=== PATIENT | female | born 1930 | race Two or more races ===

== ENCOUNTER 2019-09-29 12:38 | Inpatient (IN) | payer MEDICARE, MEDICAID ==
[~2019-09-29] VITALS: Ht 152.4 cm; Wt 84.4 kg
[2019-09-29] MEDS ORDERED: ACYCLOVIR INJ 500 MG in DEXT 5% WATER 100 ML IV STA (13:15)
[2019-09-29 13:45] LABS: BASOPHILS % 0.8 % (0.0-2.0); EOSINOPHILS % 1.8 % (0.0-5.0); HEMATOCRIT. 42.3 % (36.0-48.0); LYMPHOCYTES % 23.8 % (20.0-50.0); MEAN CORPUSCULAR HEMOGLOBIN 28.8 pg (28.0-32.0); MEAN CORPUSCULAR VOLUME 87.3 fL (81.0-99.0); MEAN PLATELET VOLUME 9.1 fl (7.4-10.4); MONOCYTES % 6.4 % (2.0-8.0); NEUTROPHILS % 67.2 % (40.0-76.0); PLATELET 243 x1000/uL (130-400); PROTHROMBIN TIME 10.1 sec (9.6-11.0); RED BLOOD CELL COUNT 4.85 mill/uL (4.2-5.4); RED CELL DISTRIBUTION WIDTH 14.3 % (11.6-14.6)
[2019-09-29 13:46] LABS: CHLORIDE 106 mEq/L (98-107)
[2019-09-29 13:53] LABS: ETHANOL BLOOD < 10 mg/dL
[2019-09-29 13:55] LABS: LDL CHOLESTEROL 43 mg/dL (5-100)
[2019-09-29] MEDS ORDERED: METHYLPREDNISOLONE SOD SUCC 125 MG/2 ML VIAL IV NR (15:00)
[2019-09-29] MEDS ORDERED: ASPIRIN 81MG TABLET PO ONE (17:00)
[2019-09-29] MEDS: SODIUM CHLORIDE 0.45% 1,000 ML IV SCH (17:29)
[2019-09-29] MEDS ORDERED: DOCUSATE SODIUM 100MG CAPSULE PO PRN (17:30)
[2019-09-29] MEDS ORDERED: NA PHOS,M-B/NA PHOS,DI-BA ENEMA 118ML PR PRN (17:30)
[2019-09-29] MEDS ORDERED: HYDROCODONE/ACETAMINOPHEN 5/325MG TABLET PO PRN (17:30)
[2019-09-29] MEDS ORDERED: ENOXAPARIN 40MG/0.4ML SYR SUBCUT SCH (17:30)
[2019-09-29] MEDS ORDERED: IPRATROPIUM/ALBUTEROL 0.5-3(2.5)MG/3ML NEB HHN PRN (17:30)
[2019-09-29] MEDS ORDERED: MORPHINE SULFATE 2 MG/ML CPJ (NOT FOR IM USE) IV PRN (17:30)
[2019-09-29] MEDS ORDERED: LORAZEPAM 2MG/ML CPJ IV PRN (17:30)
[2019-09-29] MEDS ORDERED: GUAIFENESIN 200MG/10ML SUGAR FREE UDC PO PRN (17:30)
[2019-09-29] MEDS ORDERED: MAGNESIUM/ALUMINUM HYDROXIDE/SIMETHICONE 30ML UDC PO PRN (17:30)
[2019-09-29] MEDS ORDERED: ONDANSETRON HCL 4MG/2ML INJ IV PRN (17:30)
[2019-09-29 21:10] VITALS: BP 146/67
[2019-09-29 21:15] VITALS: BP 146/67
[2019-09-29 22:00] LABS: CHLORIDE 106 mEq/L (98-107)
[2019-09-30] VITALS: BP 137/64
[2019-09-30] MEDS: ENOXAPARIN 40MG/0.4ML SYR SUBCUT SCH ×2 (00:53→21:52)
[2019-09-30 04:00] VITALS: BP 109/60
[2019-09-30 06:37] LABS: CHLORIDE 106 mEq/L (98-107)
[2019-09-30 06:39] LABS: BASOPHILS % 0.2 % (0.0-2.0); HEMATOCRIT. 40.4 % (36.0-48.0); HEMOGLOBIN. 13.6 g/dL (12.0-16.0); LYMPHOCYTES % 10.9 % (20.0-50.0); MEAN CORPUSCULAR HEMOGLOBIN 29.1 pg (28.0-32.0); MEAN CORPUSCULAR VOLUME 86.6 fL (81.0-99.0); MONOCYTES % 0.6 % (2.0-8.0); NEUTROPHILS % 88.3 % (40.0-76.0); PLATELET 262 x1000/uL (130-400); RED BLOOD CELL COUNT 4.66 mill/uL (4.2-5.4); RED CELL DISTRIBUTION WIDTH 13.8 % (11.6-14.6)
[2019-09-30 06:51] LABS: T4 FREE 0.66 ng/dL (0.76-1.46)
[2019-09-30 06:52] LABS: LDL CHOLESTEROL 50 mg/dL (5-100)
[2019-09-30 06:55] LABS: HDL CHOLESTEROL 66 mg/dL (40-59)
[2019-09-30 08:00] VITALS: BP 134/68
[2019-09-30] MEDS: SODIUM CHLORIDE 0.45% 1,000 ML IV SCH (09:15)
[2019-09-30] MEDS: ASPIRIN 81MG EC TABLET PO SCH (09:15)
[2019-09-30 11:48] LABS: CLARITY URINE CLEAR (CLEAR); COLOR URINE YELLOW (YELLOW); KETONES URINE NEGATIVE (NEGATIVE); LEUKOCYTE ESTERASE URINE NEGATIVE (NEGATIVE); NITRITE URINE NEGATIVE (NEGATIVE); OCCULT BLOOD URINE NEGATIVE (NEGATIVE); PH URINE 5.5 (4.5-8.0); PROTEIN URINE TRACE (NEGATIVE); SPECIFIC GRAVITY URINE 1.027 (1.005-1.030); UROBILINOGEN URINE 0.2 E.U./dL (0.2-1.0)
[2019-09-30 12:00] VITALS: BP 132/55
[2019-09-30 12:15] LABS: *AMPHETAMINES SCREEN URINE NEGATIVE (NEGATIVE); *BARBITURATES SCREEN URINE NEGATIVE (NEGATIVE); *BENZODIAZEPINES SCREEN URINE NEGATIVE (NEGATIVE); *COCAINE SCREEN URINE NEGATIVE (NEGATIVE)
[2019-09-30 12:17] LABS: METHADONE URINE SCREEN NEGATIVE (NEGATIVE); OPIATES URINE SCREEN NEGATIVE (NEGATIVE); PHENCYCLIDINE URINE SCREEN NEGATIVE (NEGATIVE)
[2019-09-30 12:18] LABS: CANNABINOID URINE SCREEN NEGATIVE (NEGATIVE)
[2019-09-30] MEDS ORDERED: LEVO88TA7 PO (13:27)
[2019-09-30] MEDS ORDERED: ASPI-1497 PO (13:27)
[2019-09-30] MEDS ORDERED: LOSA100T32 PO (13:27)
[2019-09-30] MEDS ORDERED: AMLO5TAB4 PO (13:27)
[2019-09-30] MEDS ORDERED: ATOR40TA70 MT (13:27)
[2019-09-30] MEDS ORDERED: DEXL30CA3 PO (13:27)
[2019-09-30 16:00] VITALS: BP 132/55
[2019-09-30 20:00] VITALS: BP 152/65
[2019-09-30] MEDS: ERYTHROMYCIN BASE 0.5% OPHTH OINT 3.5GM LEFTEYE SCH (21:51)
[2019-10-01] VITALS: BP 141/57
[2019-10-01 04:00] VITALS: BP 133/51
[2019-10-01 08:00] VITALS: BP 143/74
[2019-10-01] MEDS: ASPIRIN 81MG EC TABLET PO SCH (08:55)
[2019-10-01 12:00] VITALS: BP 155/59
[2019-10-01 16:18] VITALS: BP 131/59
[2019-10-01 20:00] VITALS: BP 135/47
[2019-10-01] MEDS: ERYTHROMYCIN BASE 0.5% OPHTH OINT 3.5GM LEFTEYE SCH (21:43)
[2019-10-01] MEDS: ENOXAPARIN 40MG/0.4ML SYR SUBCUT SCH (21:43)
[2019-10-01] MEDS: SODIUM CHLORIDE 0.45% 1,000 ML IV SCH (23:16)
[2019-10-02] VITALS: BP 133/57
[2019-10-02 04:00] VITALS: BP 132/53
[2019-10-02 08:00] VITALS: BP 135/62
[2019-10-02] MEDS: ASPIRIN 81MG EC TABLET PO SCH (09:24)
[2019-10-02 12:00] VITALS: BP 123/61
[2019-10-02 16:00] VITALS: BP 158/62
[2019-10-02] MEDS: SODIUM CHLORIDE 0.45% 1,000 ML IV SCH (17:28)
[2019-10-02 20:00] VITALS: BP 149/68
[2019-10-02] MEDS: ERYTHROMYCIN BASE 0.5% OPHTH OINT 3.5GM LEFTEYE SCH (22:59)
[2019-10-02] MEDS: ENOXAPARIN 40MG/0.4ML SYR SUBCUT SCH (23:00)
[2019-10-03] VITALS: BP 146/52
[2019-10-03 04:00] VITALS: BP 102/41
[2019-10-03] MEDS: ASPIRIN 81MG EC TABLET PO SCH (09:52)
[2019-10-03 12:24] VITALS: BP 150/60
== END 2019-10-03 13:33 | disposition home health service (06) | DRG 48 ==
LOC: ER 12:38 → EDBEDREQ 17:04 → EDBEDREQSVC 17:04 → ENRESERV 20:30 → 7WST 20:59
PROVIDERS: ADMIT Internal Medicine; ATTEND Internal Medicine
DX: G51.0 Bell's palsy (principal); E46 Unspecified protein-calorie malnutrition; I11.0 Hypertensive heart disease with heart failure; E66.01 Morbid (severe) obesity due to excess calories; I50.9 Heart failure, unspecified; I71.2 Thoracic aortic aneurysm, without rupture; F41.9 Anxiety disorder, unspecified; F32.9 Major depressive disorder, single episode, unspecified; I44.0 Atrioventricular block, first degree; D64.9 Anemia, unspecified; E86.0 Dehydration; M13.0 Polyarthritis, unspecified; Z68.36 Body mass index [BMI] 36.0-36.9, adult; I69.398 Other sequelae of cerebral infarction
CPT/HCPCS: 36415; 70551; 71045; 80048; 80053; 80061; 80305; 80320; 81003; 82962; 83721; 84439; 84443; 84484; 85025; 92610; 93005; 96365; 96366; 96375; 97162; 99285; J0133; J1650; J2930; J7060; G0480